=== PATIENT | female | born 1975 | race Caucasian/White ===

== ENCOUNTER 2022-10-27 14:30 | Inpatient (IN) | payer MEDICAID ==
[2022-10-29] MEDS: Sodium Chloride 0.9% 1,000 ML IV SCH ×2 (06:30→10:05)
[2022-10-29] MEDS ORDERED: Indocyanine Green 25 MG SDV IV ONE (06:40)
[2022-10-29] MEDS ORDERED: Acetaminophen 500 MG Tab PO ONE (06:45)
[2022-10-29 06:52] LABS: HEMOGLOBIN 8.6 g/dL (11.2-15.5); MEAN CORPUSCULAR HGB CONC 28.7 g/dL (31.6-35.5); MEAN CORPUSCULAR VOLUME 62.8 fL (81.4-99.0); RED BLOOD CELL COUNT 4.78 M/uL (3.77-5.24); WHITE BLOOD CELL COUNT,WBC 6.2 K/uL (3.2-11.0)
[2022-10-29] MEDS ORDERED: fentaNYL 250 MCG/5 ML SDV ONE ×2 (06:56→08:28)
[2022-10-29] MEDS ORDERED: Neostigmine Methylsulfate 1 MG/ML 5 ML Syringe ONE (06:58)
[2022-10-29] MEDS ORDERED: Rocuronium 50 MG/5 ML Vial ONE (06:58)
[2022-10-29] MEDS ORDERED: Glycopyrrolate 0.2 MG/ML 5 ML MDV ONE (06:58)
[2022-10-29] MEDS ORDERED: Succinylcholine 200 MG/10 ML MDV ONE (06:58)
[2022-10-29] MEDS ORDERED: Ondansetron 4 MG/2 ML SDV ONE (06:58)
[2022-10-29] MEDS ORDERED: Propofol 200 MG/20 ML SDV ONE (06:58)
[2022-10-29] MEDS ORDERED: Dexamethasone 4 MG/ML SDV ONE (06:58)
[2022-10-29] MEDS ORDERED: metroNIDAZOLE/Normal Saline 500 MG in Premix Bag 1 BAG IV ONE (07:00)
[2022-10-29] MEDS ORDERED: cefTRIAXone 2 GM in Sodium Chloride 0.9% 50 ML IV ONE (07:00)
[2022-10-29] MEDS ORDERED: Bupivacaine 0.5%/EPINEPHrine 1:200,000 50 ML MDV ONE (07:04)
[2022-10-29 07:16] LABS: A/G RATIO 0.9 (1.2-2.2); ALANINE AMINOTRANSFERASE,ALT 21 U/L (12-78); ALBUMIN 3.3 g/dL (3.4-5.0); ALKALINE PHOSPHATASE 87 U/L (46-116); ANION GAP 10.5 mmol/L (5.0-14.0); ASPARTATE AMNIOTRANSFERASE,AST 20 U/L (15-37); BILIRUBIN TOTAL 0.2 mg/dL (0.2-1.0); BLOOD UREA NITROGEN,BUN 9 mg/dL (7-18); CALCIUM 8.4 mg/dL (8.5-10.1); CARBON DIOXIDE,CO2 24 mmol/L (21-32); CHLORIDE,CL 107 mmol/L (100-108); CREATININE 0.6 mg/dL (0.6-1.0); EST CRCL DRUG DOSING (CG) 89.35 mL/min; ESTIMATED GFR 113 mL/min (>60); GLUCOSE RANDOM 105 mg/dL (74-106); POTASSIUM,K 3.9 mmol/L (3.6-5.2); PROTEIN TOTAL,TP 6.9 g/dL (6.4-8.2); SODIUM,NA 141 mmol/L (140-148)
[2022-10-29] MEDS ORDERED: Ondansetron 4 MG/2 ML SDV IVPUSH PRN (09:10)
[2022-10-29] MEDS ORDERED: Acetaminophen/HYDROcodone 325-5 MG Tab PO PRN (09:10)
[2022-10-29] MEDS ORDERED: Ondansetron 4 MG/2 ML SDV IVPUSH ONE (09:31)
[2022-10-29] MEDS ORDERED: hydrOXYzine HCL 100 MG/2 ML SDV IM ONE (09:46)
[2022-10-29] MEDS ORDERED: fentaNYL 50 MCG/ML SDV IVPUSH ONE (09:48)
[2022-10-29] MEDS ORDERED: Naloxone 0.4 MG/ML SDV IVPUSH PRN (13:57)
[2022-10-29] MEDS: Acetaminophen 1,000 MG in Premix Bag 1 BAG IV SCH ×2 (14:25→22:30)
[2022-10-29] MEDS ORDERED: HYDROmorphone 0.5 MG/0.5 ML Syringe IVPUSH ONE (14:30)
[2022-10-29] MEDS: oxyCODONE 5 MG Tab PO PRN ×2 (17:30→22:31)
[2022-10-30 05:53] LABS: HEMATOCRIT 29.2 % (34.3-46.0); HEMOGLOBIN 8.4 g/dL (11.2-15.5); MEAN CORPUSCULAR HEMOGLOBIN 18.4 pg (31.6-35.5); MEAN CORPUSCULAR HGB CONC 28.8 g/dL (31.6-35.5); MEAN CORPUSCULAR VOLUME 63.9 fL (81.4-99.0); RED BLOOD CELL COUNT 4.57 M/uL (3.77-5.24); WHITE BLOOD CELL COUNT,WBC 10.2 K/uL (3.2-11.0)
[2022-10-30 06:15] LABS: A/G RATIO 0.9 (1.2-2.2); ALANINE AMINOTRANSFERASE,ALT 27 U/L (12-78); ALBUMIN 3.1 g/dL (3.4-5.0); ALKALINE PHOSPHATASE 84 U/L (46-116); ASPARTATE AMNIOTRANSFERASE,AST 27 U/L (15-37); BILIRUBIN TOTAL 0.2 mg/dL (0.2-1.0); BLOOD UREA NITROGEN,BUN 7 mg/dL (7-18); CALCIUM 8.6 mg/dL (8.5-10.1); CARBON DIOXIDE,CO2 22 mmol/L (21-32); CHLORIDE,CL 106 mmol/L (100-108); CREATININE 0.8 mg/dL (0.6-1.0); EST CRCL DRUG DOSING (CG) 67.01 mL/min; ESTIMATED GFR 93 mL/min (>60); GLUCOSE RANDOM 141 mg/dL (74-106); PROTEIN TOTAL,TP 6.7 g/dL (6.4-8.2); SODIUM,NA 139 mmol/L (140-148)
[2022-10-30 06:27] LABS: PHOSPHORUS 3.6 mg/dL (2.5-4.9)
[2022-10-30] MEDS: Acetaminophen 1,000 MG in Premix Bag 1 BAG IV SCH (06:44)
== END 2022-10-30 09:57 | disposition home or self-care (01) | DRG 419 ==
LOC: JP.SDSSCHI 10-29 05:55 → JP.MS 10-29 09:10
PROVIDERS: ADMIT Student in an Organized Health Care Education/Training Program; ATTEND Student in an Organized Health Care Education/Training Program
PROC: 0FT44ZZ Resection of Gallbladder, Percutaneous Endoscopic Approach (ICD-10-PCS; principal; 2022-10-29)
PROC: 8E0W4CZ Robotic Assisted Procedure of Trunk Region, Percutaneous Endoscopic Approach (ICD-10-PCS; 2022-10-29)
DX: K80.10 Calculus of gallbladder with chronic cholecystitis without obstruction (principal); G43.909 Migraine, unspecified, not intractable, without status migrainosus; Z90.49 Acquired absence of other specified parts of digestive tract; Z98.890 Other specified postprocedural states; Z91.040 Latex allergy status; Z79.899 Other long term (current) drug therapy
CPT/HCPCS: 36415; 80053; 83735; 84100; 84703; 85027; 86850; 86900; 86901; 88304; A9270-GY; J0131; J0330; J0696; J1100; J1170; J2405; J2704; J2710; J3010; J3410; J3490; J7030